=== PATIENT | male | born 1985 | race Two or more races ===

== ENCOUNTER 2023-01-08 16:14 | Emergency (ER) | payer SELFPAY ==
[~2023-01-08] VITALS: Ht 170.2 cm; Wt 81.8 kg
[~2023-01-08 16:14] MED LIST: NOCURR
[2023-01-08] MEDS ORDERED: LIDOCAINE/PF 1% 2 ML VIAL IM ONE (17:30)
[2023-01-08] MEDS ORDERED: CefTRIAXone SODIUM 1 GM/VIAL IM ONE (17:30)
[2023-01-08] MEDS ORDERED: DOXYCYCLINE HYCLATE 100 MG TABLET PO ONE (17:30)
[2023-01-08] MEDS ORDERED: IBUP-1554 PO (18:15)
[2023-01-08] MEDS ORDERED: DOXY-354 PO (18:15)
[2023-01-08] MEDS ORDERED: CEPH-558 PO (18:15)
[2023-01-08 18:30] VITALS: BP 130/76
== END 2023-01-08 18:33 | disposition home or self-care (01) ==
LOC: EMS 16:18
DX: L02.416 Cutaneous abscess of left lower limb (principal); L03.116 Cellulitis of left lower limb; F17.210 Nicotine dependence, cigarettes, uncomplicated; F12.90 Cannabis use, unspecified, uncomplicated; Z88.0 Allergy status to penicillin
CPT/HCPCS: 99283; 10060; 96372; J0696; J3490

== ENCOUNTER 2023-01-12 16:59 | Emergency (ER) | payer MEDICAID ==
[~2023-01-12] VITALS: Ht 170.2 cm; Wt 81.8 kg
[~2023-01-12 16:59] MED LIST changes: +CEPH-558 PO; +DOXY-354 PO; +IBUP-1554 PO; -NOCURR
[2023-01-12 18:21] VITALS: BP 139/76
[2023-01-12] MEDS ORDERED: DOXYCYCLINE HYCLATE 100 MG TABLET PO ONE (19:00)
[2023-01-12] MEDS ORDERED: CEPHALEXIN MONOHYDRATE 500 MG CAPSULE PO ONE (19:00)
== END 2023-01-12 19:24 | disposition home or self-care (01) ==
LOC: EMS 16:59
DX: L02.416 Cutaneous abscess of left lower limb (principal); L03.116 Cellulitis of left lower limb; F17.210 Nicotine dependence, cigarettes, uncomplicated; F12.90 Cannabis use, unspecified, uncomplicated; F15.90 Other stimulant use, unspecified, uncomplicated; Z88.0 Allergy status to penicillin
CPT/HCPCS: 99283